=== PATIENT | male | born 1960 | race African-American/Black ===

== ENCOUNTER 2016-11-18 00:21 | Observation (INO) | payer OTHER ==
[~2016-11-18] VITALS: Ht 175.3 cm; Wt 68.0 kg
[2016-11-18] MEDS ORDERED: MORPHINE SULFATE 2 MG/ML DISP.SYRIN. IV PRN (01:45)
[2016-11-18] MEDS ORDERED: ONDANSETRON PF 4 MG/2 ML VIAL. IV PRN (01:45)
[2016-11-18 01:50] LABS: GFR 92.9; POTASSIUM 3.8 mmol/L (3.5-5.1)
[2016-11-18 01:55] LABS: ALBUMIN 2.8 g/dL (3.4-5.0); DIRECT BILIRUBIN 0.1 mg/dL (0.0-0.2); TOTAL BILIRUBIN 0.3 mg/dL (0.2-1.0); TOTAL PROTEIN 7.3 g/dL (6.4-8.2)
[2016-11-18 02:04] LABS: BASO % 1 % (0-3); EOS % 4 % (0-3); HEMATOCRIT 39.6 % (39.0-53.0); LYMPH # 3.1 x10^3/uL (1.0-4.8); LYMPH % 50 % (24-48); MEAN CORPUSCULAR HEMOGLOBIN 35 pg (25-35); MEAN CORPUSCULAR HGB CONC 33 g/dL (31-37); MEAN CORPUSCULAR VOLUME 106 fL (79-100); MONO % 7 % (0-9); NEUT % 39 % (31-73); PLATELET COUNT 242 x10^3/uL (140-400); RED BLOOD COUNT 3.74 x10^6/uL (4.30-5.70); RED CELL DISTRIBUTION WIDTH 12.9 % (11.5-14.5); WHITE BLOOD COUNT 6.1 x10^3/uL (4.0-11.0)
--- NOTE | 2016-11-18 02:06 | PHYS DOC ---
Past Medical History Past Medical History: No Pertinent History Past Surgical History: No Surgical History Alcohol Use: Heavy Additional Information: 6 PACK DAY Drug Use: Cocaine, Heroin, Marijuana Adult General Chief Complaint Chief Complaint: Palpitations HPI HPI 56-year-old male presenting to the emergency department today with shortness of breath palpitations chest pain. EMS arrived to the patient and the patient was hypotensive with evidence of end organ dysfunction. Patient was given 6 mg of adenosine after IV established. EMS reports conversion to normal sinus rhythm. Currently the patient is asymptomatic. Onset 1 hour prior to arrival. Duration intermittent. Alleviated by adenosine. No exacerbating factors. Review of systems is negative for chest pain shortness of breath abdominal pain nausea vomiting fevers or chills. All other review of systems is negative unless otherwise noted in history of present illness. Review of Systems Review of Systems SEE ABOVE. Current Medications Current Medications Current Medications Medications (Trade) Dose Ordered Sig/Ebony Start Time Stop Time Status Last Admin Dose Admin Aspirin (Children'S Aspirin) 324 mg 1X ONCE 11/18/16 02:15 11/18/16 02:16 DC Morphine Sulfate 2 mg PRN Q2HR PRN 11/18/16 01:45 11/19/16 01:44 Ondansetron HCl (Zofran) 4 mg PRN Q8HRS PRN 11/18/16 01:45 11/19/16 01:44 Allergies Allergies Allergies Coded Allergies Type Severity Reaction Last Updated Verified No Known Drug Allergies 11/06/13 No Physical Exam Physical Exam Constitutional: Well developed, well nourished, no acute distress, non-toxic appearance. HENT: Normocephalic, atraumatic, bilateral external ears normal, oropharynx moist, no oral exudates, nose normal. [] Eyes: PERRLA, EOMI, conjunctiva normal, no discharge. [] Neck: Normal range of motion, no tenderness, supple, no stridor. Cardiovascular:Heart rate regular rhythm, no murmur Lungs & Thorax: Bilateral breath sounds clear to auscultation [] Abdomen: Bowel sounds normal, soft, no tenderness, no masses, no pulsatile masses. Skin: Warm, dry, no erythema, no rash. [] Back: No tenderness, no CVA tenderness. [] Extremities: No tenderness, no cyanosis, no clubbing, ROM intact, no edema. Neurologic: Alert and oriented X 3, normal motor function, normal sensory function, no focal deficits noted. [] Psychologic: Affect normal, judgement normal, mood normal. [] Current Patient Data Vital Signs Vital Signs Date Time Temp Pulse Resp B/P Pulse Ox O2 Delivery O2 Flow Rate FiO2 11/18/16 00:21 95 21 138/82 97 Room Air Lab Values Laboratory Tests Test 11/18/16 01:15 White Blood Count 6.1x10^3/uL (4.0-11.0) Red Blood Count 3.74x10^6/uL (4.30-5.70) L Hemoglobin 13.0g/dL (13.0-17.5) Hematocrit 39.6% (39.0-53.0) Mean Corpuscular Volume 106fL (79-100) H Mean Corpuscular Hemoglobin 35pg (25-35) Mean Corpuscular Hemoglobin Concent 33g/dL (31-37) Red Cell Distribution Width 12.9% (11.5-14.5) Platelet Count 242x10^3/uL (140-400) Neutrophils (%) (Auto) 39% (31-73) Lymphocytes (%) (Auto) 50% (24-48) H Monocytes (%) (Auto) 7% (0-9) Eosinophils (%) (Auto) 4% (0-3) H Basophils (%) (Auto) 1% (0-3) Neutrophils # (Auto) 2.4x10^3uL (1.8-7.7) Lymphocytes # (Auto) 3.1x10^3/uL (1.0-4.8) Monocytes # (Auto) 0.4x10^3/uL (0.0-1.1) Eosinophils # (Auto) 0.2x10^3/uL (0.0-0.7) Basophils # (Auto) 0.0x10^3/uL (0.0-0.2) Sodium Level 145mmol/L (136-145) Potassium Level 3.8mmol/L (3.5-5.1) Chloride Level 110mmol/L (98-107) H Carbon Dioxide Level 27mmol/L (21-32) Anion Gap 8 (6-14) Blood Urea Nitrogen 11mg/dL (8-26) Creatinine 1.0mg/dL (0.7-1.3) Estimated GFR (Cockcroft-Gault) 92.9 Glucose Level 103mg/dL (70-99) H Calcium Level 9.0mg/dL (8.5-10.1) Total Bilirubin 0.3mg/dL (0.2-1.0) Direct Bilirubin 0.1mg/dL (0.0-0.2) Aspartate Amino Transferase (AST) 21U/L (15-37) Alanine Aminotransferase (ALT) 23U/L (16-63) Alkaline Phosphatase 62U/L (46-116) Troponin I Quantitative < 0.017ng/mL (0.000-0.055) FS-Kvw-Q-Type Natriuretic Peptide 95pg/mL (0-124) Total Protein 7.3g/dL (6.4-8.2) Albumin 2.8g/dL (3.4-5.0) L Lipase 189U/L (73-393) Laboratory Tests 11/18/16 01:15 Laboratory Tests 11/18/16 01:15 EKG EKG EKG shows sinus rhythm with a regular rate. [place] normal. Intervals normal. ST segments congruent. Mild T waves increased amplitude in lead V3 and V4. [] Radiology/Procedures Radiology/Procedures [] Chest x-ray shows no obvious infiltrate or pneumothorax. Course & Med Decision Making Course & Med Decision Making Pertinent Labs and Imaging studies reviewed. (See chart for details) [] 48-year-old male presenting to the emergency department today after being reportedly in SVT and converting with adenosine during prehospital care. Upon arrival to our emergency department the patient is asymptomatic. Vital signs are within normal limits. IV established. Blood work taken. EKG shows mild increased T-wave amplitude otherwise unremarkable. Patient denies chest pain or shortness of breath. Aspirin given. Patient then admitted for further evaluation workup and care. Cardiology consultation placed. Departure Departure Impression: Primary Impression: SVT (supraventricular tachycardia) Disposition: ADMITTED INPATIENT Admitting Physician: Mary Ellen Barnes Condition: STABLE Referrals: NO PCP (PCP) DARREN CASPER MD Nov 18, 2016 02:06
[2016-11-18] MEDS ORDERED: ASPIRIN 81 MG TAB.CHEW PO ONE (02:15)
--- NOTE | 2016-11-18 06:29 | ACF ---
JARETFADIA ZunigaHAMZAH 11/18/16 0629: Admit Criteria Forms Admit Criteria Forms Admit Criteria Forms SUPRAVENTRICULAR ARRHYTHMIAS Clinical Indications for Admission to Inpatient Care (Place 'X' for any and all applicable criteria): Admission is indicated by ANY ONE of the following (1)(2): [ ]I. Arrhythmia causing significant symptoms or findings as indicated by ANY ONE of the following: [ ]a) Chest pain [ ]b) Myocardial ischemia [ ]c) Altered mental status [ ]d) Dizziness, weakness, or light-headedness [ ]e) Dyspnea or hypoxemia [ ]f) Heart failure (eg, pulmonary edema)(11) [ ]II. Initiation of antiarrhythmic drug therapy is needed in patient at high risk of adverse events as indicated by ANY ONE of the following: [ ]a) Significant structural heart disease (eg, aortic stenosis, reduced ejection fraction, cardiomyopathy, congenital heart disease) [ ]b) Underlying sinus node or atrioventricular conduction disturbances [ ]c) Prolonged QT interval [ ]d) Need for treatment with antiarrhythmic that have significant proarrhythmic potential ( procainamide) [ ]e) Patient whose sinus rhythm has not been observed on ECG [X]III. Inpatient admission required rather than observation care because of ANY ONE of the following: [ ]a) Syncope [ ]b) Patient has automatic implanted cardioverter-defibrillator that is repeatedly firing, malfunctioning, or in need of immediate adjustment of settings beyond scope of ambulatory or observation care. [X]c) Hemodynamic instability that is severe or persistent [ ]d) Unstable cardiac conduction defects indicated by ANY ONE of the following(19)(20)(21): [ ]a) Type II second-degree atrioventricular block [ ]b) Third-degree atrioventricular block [ ]C) New-onset left bundle branch block with suspected myocardial ischemia [ ]e) Severe electrolyte abnormalities requiring inpatient care [ ]f) Continuous intravenous infusion of anticoagulation, platelet inhibitor, vasoactive, or antiarrhythmic medication(14) [ ]g) Pulmonary artery catheter monitoring [ ]h) Repeat cardioversion necessary [ ]i) Other condition, treatment or monitoring requiring inpatient admission [ ]IV. Underlying medical condition that necessitates inpatient care (eg, thyrotoxicosis, severe acidosis) Extended stay beyond goal length of stay may be needed for(1)(17)(18): [ ]a) Persistent hemodynamic instability or continued severe arrhythmia [ ]b) Continued monitoring during initiation of certain medications (eg, some antiarrhythmics)(17)(19) [ ]c) Precipitating cause requires ongoing inpatient care (eg, severe electrolyte abnormality, systemic infection, acidosis) [ ]d) Unstable comorbidities The original [facility] content created by [facility] has been revised. The portions of the content which have been revised are identified through the use of italic text or in bold, and [facility] has neither reviewed nor approved the modified material. All other unmodified content is copyright [facility]. Please see references footnoted in the original [facility] edition 2016 DARREN CASPER MD 11/21/16 2330: HAMZAH ADKINS Nov 18, 2016 06:29 DARREN CASPER MD Nov 21, 2016 23:30
--- NOTE | 2016-11-18 06:38 | EKG ---
[facility] [address] [place] [address] Test Date: 2016-11-18 Test Time: 00:30:23 Pat Name: ANDREINA PRADO Department: Room: ED HOLD 5 Gender: M Opthalmic Tech: ER : 1960 Requested By: DARREN CASPER Order Number: [id number] Reading MD: Gabbi Reed Measurements Intervals [place] Rate: 89 P: 102 NC: 140 QRS: 74 QRSD: 66 T: 60 QT: 326 QTc: 402 Interpretive Statements SINUS RHYTHM LEFT ATRIAL ABNORMALITY ABNORMAL ECG RI6.01 Compared to ECG 01/09/2014 17:35:52 Atrial abnormality now present Atrial premature complex(es) no longer present Electronically Signed On 11-20-2016 18:28:12 QA TESTER by Gabbi Reed
--- NOTE | 2016-11-18 07:21 | RAD ---
Portable AP upright view CXR: Clinical indications: Chest pain tonight. Comparison: January 09, 2014. Findings: Old granulomatous disease is seen on the right side. No acute lung infiltrate or pleural effusion or pulmonary edema or lung mass or pneumothorax is seen. The heart size, pulmonary vasculature, mediastinum and both dena are unremarkable. Impression: No acute radiographic abnormality is seen.
--- NOTE | 2016-11-18 10:17 | PDOC2 ---
DEMOND ACEVEDO NIKE ATHLETE 11/18/16 1017: CARDIAC CONSULT DATE OF CONSULT Date of Consult DATE: 11/18/16 TIME: 09:49 REASON FOR CONSULT Reason for Consult: SVT, S/P converting REFERRING PHYSICIAN Referring Physician: Robby SOURCE Source: Chart review, Patient HISTORY OF PRESENT ILLNESS HISTORY OF PRESENT ILLNESS This is a pleasant 56 yo male admitted for complains of palpitations. 2229 last night he felt his heart like it was racing. He was having some chest tightness and SOA. No nausea, vomiting diaphoresis. Via ambulance he was noted with SVT and was given adenosine which he then converted back to SR. No strips available from the EMS. Denies this of any past occurrence. He does not take any routine medications but positive for past use of cocaine marijuana and actually was at [facility] recently for 4 days of detox then transferred to [facility] since Nov 09. Denies any CAD, arrhythmia, VTE, falls or any recent injury. PAST MEDICAL HISTORY Past Medical History No past medical history PAST SURGICAL HISTORY Past Surgical History: No pertinent history FAMILY HISTORY Family History: Coronary Artery Disease (mother) SOCIAL HISTORY Smoke: 1 pack per day (>30 yrs) ALCOHOL: occassional Drugs: Cocaine, Marijuana, Heroin Lives: Alone ([facility] currently) CURRENT MEDICATIONS CURRENT MEDICATIONS Current Medications Medications (Trade) Dose Ordered Sig/Ebony Route PRN Reason Start Time Stop Time Status Last Admin Dose Admin Aspirin (Children'S Aspirin) 324 mg 1X ONCE PO 11/18/16 02:15 11/18/16 02:16 DC 11/18/16 02:15 ALLERGIES ALLERGIES: Coded Allergies: No Known Drug Allergies (Unverified , 11/06/13) ROS Review of System 14 point ROS evaluated with pertinent positives noted per HPI PHYSICAL EXAM General: Alert, Oriented X3, Cooperative, No acute distress HEENT: Atraumatic, Mucous membr. moist/pink Lungs: Clear to auscultation, Normal air movement Heart: Regular rate, Normal S1, Normal S2, No murmurs Abdomen: Soft, No tenderness, Other (pulsatile mass to mid abdomen) Extremities: No cyanosis, No edema, Other (faint pedal pulses) Skin: No breakdown, Other (strophic and hairless skin tolegs) Neuro: Normal speech, Sensation intact Psych/Mental Status: Mental status NL, Mood NL MUSCULOSKELETAL: Osteoarthritic changes both hands VITALS VITALS Vital Signs Date Time Temp Pulse Resp B/P Pulse Ox O2 Delivery O2 Flow Rate FiO2 11/18/16 08:44 76 20 115/68 100 Room Air LABS Lab: Laboratory Tests Test 11/18/16 01:15 White Blood Count 6.1x10^3/uL (4.0-11.0) Red Blood Count 3.74x10^6/uL (4.30-5.70) Hemoglobin 13.0g/dL (13.0-17.5) Hematocrit 39.6% (39.0-53.0) Mean Corpuscular Volume 106fL (79-100) Mean Corpuscular Hemoglobin 35pg (25-35) Mean Corpuscular Hemoglobin Concent 33g/dL (31-37) Red Cell Distribution Width 12.9% (11.5-14.5) Platelet Count 242x10^3/uL (140-400) Neutrophils (%) (Auto) 39% (31-73) Lymphocytes (%) (Auto) 50% (24-48) Monocytes (%) (Auto) 7% (0-9) Eosinophils (%) (Auto) 4% (0-3) Basophils (%) (Auto) 1% (0-3) Neutrophils # (Auto) 2.4x10^3uL (1.8-7.7) Lymphocytes # (Auto) 3.1x10^3/uL (1.0-4.8) Monocytes # (Auto) 0.4x10^3/uL (0.0-1.1) Eosinophils # (Auto) 0.2x10^3/uL (0.0-0.7) Basophils # (Auto) 0.0x10^3/uL (0.0-0.2) Sodium Level 145mmol/L (136-145) Potassium Level 3.8mmol/L (3.5-5.1) Chloride Level 110mmol/L (98-107) Carbon Dioxide Level 27mmol/L (21-32) Anion Gap 8 (6-14) Blood Urea Nitrogen 11mg/dL (8-26) Creatinine 1.0mg/dL (0.7-1.3) Estimated GFR (Cockcroft-Gault) 92.9 Glucose Level 103mg/dL (70-99) Calcium Level 9.0mg/dL (8.5-10.1) Total Bilirubin 0.3mg/dL (0.2-1.0) Direct Bilirubin 0.1mg/dL (0.0-0.2) Aspartate Amino Transf (AST/SGOT) 21U/L (15-37) Alanine Aminotransferase (ALT/SGPT) 23U/L (16-63) Alkaline Phosphatase 62U/L (46-116) Troponin I Quantitative < 0.017ng/mL (0.000-0.055) CO-Tjp-Q-Type Natriuretic Peptide 95pg/mL (0-124) Total Protein 7.3g/dL (6.4-8.2) Albumin 2.8g/dL (3.4-5.0) Lipase 189U/L (73-393) ASSESSMENT/PLAN ASSESSMENT/PLAN 1. 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 Converted to SR after x1 adenosine 2. Pulsatile mass to abdomen 3. Substance abuse: recent heroin detox, cocaine, marijuana' 4. Tobaccoism Recommendations 1. EKG SR, no acute changes. TSH, lipid panel, TTE 2. Educate regarding vagal maneuvers 3. No BB with known use of cocaine 4. Smoking cessation 5. Abdominal sono. 6. Start on ECASA for primary prevention' 7. Discussed abstinence to recreational drugs. Problems: CHRIS LOUIS MD 11/18/16 1826: CARDIAC CONSULT ALLERGIES ALLERGIES: Coded Allergies: No Known Drug Allergies (Unverified , 11/06/13) ASSESSMENT/PLAN ASSESSMENT/PLAN Patient seen and examined. Agree with RETORT FURNACE OPERATOR's assessment and plan. Patient with newly diagnosed PSVT, back in sinus rhythm with IV adenosine bolus. 2D echo showed normal LV function. Cannot give BB due to his history of cocaine use and BP borderline low for CCB. We will consider antiarrhythmics/ablation if he has recurrence of SVT. Thank you for your consultation. Problems: DEMOND ACEVEDO APRN Nov 18, 2016 10:17 CHRIS LOUIS MD Nov 18, 2016 18:26
[2016-11-18 11:25] LABS: MAGNESIUM 2.1 mg/dL (1.8-2.4)
[2016-11-18 11:26] LABS: CHOLESTEROL/HDL RATIO 1.4
[2016-11-18 13:02] VITALS: BP 119/81
--- NOTE | 2016-11-18 13:02 | RAD ---
Sonogram of the abdominal aorta Clinical indications: Pulsatile mass. Possible aneurysm. Findings: AP and transverse dimensions of the proximal abdominal aorta are 2.9 cm and 2.0 cm respectively. The AP and transverse dimensions of the mid abdominal aorta are 1.7 cm and 1.7 cm respectively. The AP and transverse dimensions of the distal abdominal aorta are 1.8 cm and 2.0 cm respectively. The peak systolic flow velocity measurement is 87 cm/s. The caliber of the right common iliac artery is 10 mm and the caliber of the left common iliac artery is 10 mm. IMPRESSION: No focal aneurysmal dilatation of the abdominal aorta is seen.
--- NOTE | 2016-11-18 13:25 | CARD ---
APPROVED REPORT EXAM: Two-dimensional and M-mode echocardiogram with Doppler and color Doppler. Other Information Quality : GoodHR: 61bpm Rhythm : NSR INDICATION Dyspnea RISK FACTORS Hypertension 2D DIMENSIONS RVDd2.5 (2.9-3.5cm)Left Atrium(2D)2.1 (1.6-4.0cm) IVSd1.1 (0.7-1.1cm)Aortic Root(2D)2.9 (2.0-3.7cm) LVDd4.0 (3.9-5.9cm)LVOT Diameter2.2 (1.8-2.4cm) PWd1.1 (0.7-1.1cm)LVDs2.6 (2.5-4.0cm) FS (%) 35.8 %SV46.0 ml LVEF(%)65.9 (>50%) Aortic Valve AoV Peak Chris.94.0cm/sAoV VTI18.4cm AO Peak GR.3.5mmHgLVOT Peak Chris.78.6cm/s AO Mean GR.2mmHgAVA (VMAX)3.18cm2 Mitral Valve MV E Mhvlmmwl91.0cm/sMV E Peak Gr.1mmHg MV DECEL [id number] A Suzyvwmy69.6cm/s MV E Mean Gr.0mmHgE/A Ratio0.8 Pulmonary Valve PV Peak Ptpopgus77.7cm/s Tricuspid Valve TR P. Dglfzlvl217iw/sTR Peak Gr.17mmHg Pulmonary Vein S1 Bslfchpf66.7cm/sD2 Gyvyppsy15.8cm/s PVa [id number] LEFT VENTRICLE The left ventricle is normal size. There is mild concentric left ventricular hypertrophy. The left ve ntricular systolic function is normal. The ejection fraction is estimated at 60-65%. There is normal LV segmental wall motion. Transmitral Doppler flow pattern is Grade I-abnormal relaxation pattern. RIGHT VENTRICLE The right ventricle is normal size. There is normal right ventricular wall thickness. The right ventr icular systolic function is normal. ATRIA The left atrium size is normal. The right atrium size is normal. The interatrial septum is intact wit h no evidence for an atrial septal defect or patent foramen ovale as noted on 2-D or Doppler imaging. AORTIC VALVE The aortic valve is normal in structure and function. Doppler and Color Flow revealed no significant aortic regurgitation. There is no significant aortic valvular stenosis. MITRAL VALVE The mitral valve is normal in structure and function. There is no evidence of mitral valve prolapse. There is no mitral valve stenosis. Doppler and Color Flow revealed trace mitral regurgitation. TRICUSPID VALVE Doppler and Color Flow revealed trace tricuspid regurgitation. The pulmonary artery systolic pressure is estimated at 23 mmHg. There is no pulmonary hypertension. PULMONIC VALVE The pulmonary valve is normal in structure and function. Doppler and Color Flow revealed no pulmonic valvular regurgitation. There is no pulmonic valvular stenosis. GREAT VESSELS The aortic root is normal in size. The ascending aorta is normal in size. The pulmonary artery is nor mal. The IVC is normal in size and collapses >50% with inspiration. PERICARDIAL EFFUSION There is no evidence of significant pericardial effusion. Critical Notification Critical Value: No <Conclusion> The left ventricular systolic function is normal. The ejection fraction is estimated at 60-65%. There is normal LV segmental wall motion. Transmitral Doppler flow pattern is Grade I-abnormal relaxation pattern. Trace mitral regurgitation. Trace tricuspid regurgitation. The pulmonary artery systolic pressure is estimated at 23 mmHg. There is no pulmonary hypertension. There is no evidence of significant pericardial effusion.
[2016-11-18 14:08] VITALS: BP 119/81
[2016-11-18 14:45] VITALS: BP 111/74
[2016-11-18 19:00] VITALS: BP 133/76
[2016-11-18 23:00] VITALS: BP 104/72
[2016-11-18 23:03] LABS: BARBITURATES NEG (NEG); BENZODIAZEPINES POS (NEG); CANNABINOIDS NEG (NEG); COCAINE NEG (NEG); ETHANOL, URINE NEG (NEG); METHADONE NEG (NEG); OPIATES NEG (NEG); PHENCYCLIDINE NEG (NEG)
[2016-11-19 03:00] VITALS: BP 113/77
--- NOTE | 2016-11-19 03:33 | HP ---
ADMIT DATE: 11/18/2016 CHIEF COMPLAINT: Palpitations, shortness of breath, chest pain. HISTORY OF PRESENT ILLNESS: The patient is a pleasant middle-aged male who is currently incarcerated at the [facility] group home, basically presented with chest pain and palpitations, shortness of breath, was noted to be in SVT. He came in via ambulance. He is now converted back to sinus rhythm. We admitted the patient. We will check serial enzymes, serial EKGs. We will consult the cardiology. PAST MEDICAL HISTORY: Drug abuse. ALLERGIES: None. FAMILY HISTORY: Hypertension. SOCIAL HISTORY: He takes drugs. He drinks socially. No smoking. MEDICATIONS: Reviewed, please refer to the MRAD. REVIEW OF SYSTEMS: GENERAL: No history of weight change, weakness or fevers. SKIN: No bruising, hair changes or rashes. EYES: No blurred, double or loss of vision. NOSE AND THROAT: No history of nosebleeds, hoarseness or sore throat. HEART: No history of palpitations, chest pain or shortness of breath on exertion. LUNGS: Denies cough, hemoptysis, wheezing or shortness of breath. GASTROINTESTINAL: Denies changes in appetite, nausea, vomiting, diarrhea or constipation. GENITOURINARY: No history of frequency, urgency, hesitancy or nocturia. NEUROLOGIC: Denies history of numbness, tingling, tremor or weakness. PSYCHIATRIC: No history of panic, anxiety or depression. ENDOCRINE: No history of heat or cold intolerance, polyuria or polydipsia. EXTREMITIES: Denies muscle weakness, joint pain, pain on walking or stiffness. PHYSICAL EXAMINATION: VITAL SIGNS: Temperature afebrile, pulse 74, respirations 18, blood pressure 120/77, O2 sat 99% on room air. GENERAL: He is alert, cooperative. HEART: Normal S1, S2. LUNGS: Clear. ABDOMEN: Soft. EXTREMITIES: No edema. SKIN: No rashes. PSYCHIATRIC: He is little depressed. VASCULAR: Good capillary refill. ENDOCRINE: No thyromegaly. LYMPHATICS: No cervical nodes. HEMATOPOIETIC: No bruising. LABORATORY DATA: Hematology normal. Electrolytes normal. Troponin is 0. ASSESSMENT AND PLAN: Resolving supraventricular tachycardia. The patient has been admitted. We will do cardiac monitoring, serial enzymes, serial EKGs. Consult Cardiology. Continue his home meds. MARIKA GONZALES DO DR: Ab JOB#: [id number] / [id number]
[2016-11-19] MEDS ORDERED: ASPIRIN ENTERIC COATED 81 MG TABLET.DR. PO SCH (08:00)
[2016-11-19 08:20] LABS: BASO % 1 % (0-3); EOS % 4 % (0-3); HEMATOCRIT 35.7 % (39.0-53.0); HEMOGLOBIN 11.5 g/dL (13.0-17.5); LYMPH # 3.2 x10^3/uL (1.0-4.8); LYMPH % 64 % (24-48); MEAN CORPUSCULAR HEMOGLOBIN 34 pg (25-35); MEAN CORPUSCULAR HGB CONC 32 g/dL (31-37); MEAN CORPUSCULAR VOLUME 105 fL (79-100); MONO % 7 % (0-9); NEUT % 25 % (31-73); PLATELET COUNT 254 x10^3/uL (140-400); WHITE BLOOD COUNT 5.1 x10^3/uL (4.0-11.0)
[2016-11-19 08:25] VITALS: BP 119/76
[2016-11-19 08:34] LABS: CALCIUM 8.8 mg/dL (8.5-10.1); GFR 92.9; POTASSIUM 3.9 mmol/L (3.5-5.1)
[2016-11-19 10:09] LABS: % EOS 3 % (0-5); PLT ESTIMATE ADEQUATE (ADEQUATE)
--- NOTE | 2016-11-19 10:52 | PDOC ---
PROGRESS NOTES Chief Complaint Chief Complaint 1. SVT 2. Chest pain 3. Shortness of breath 4. Palpitations 5. Drug abuse History of Present Illness History of Present Illness Pt awake, alert, and oriented with seen this AM. police patrol officer present and at bedside. Pt denies any current SOB, chest pain, or palpitations. All questions and concerns addressed and answered. Vitals Vitals Vital Signs Date Time Temp Pulse Resp B/P Pulse Ox O2 Delivery O2 Flow Rate FiO2 11/19/16 08:25 97.9 72 20 119/76 97 Room Air 97.9 Physical Exam General: Alert, Oriented X3, Cooperative, No acute distress Heart: Regular rate, Normal S1, Normal S2, No murmurs Lungs: Clear Abdomen: Soft, No tenderness, Other (pulsatile mass to mid abdomen) Extremities: No cyanosis, No edema, Other (faint pedal pulses) Skin: No breakdown, Other (strophic and hairless skin tolegs) Labs LABS Laboratory Tests Test 11/18/16 14:20 11/18/16 22:20 11/19/16 07:45 Nasal Screen MRSA (PCR) Negative (Negative) Urine Opiates Screen Neg (NEG) Urine Methadone Screen Neg (NEG) Urine Barbiturates Neg (NEG) Urine Phencyclidine Screen Neg (NEG) Urine Amphetamine/Methamphetamine Neg (NEG) Urine Benzodiazepines Screen Pos (NEG) Urine Cocaine Screen Neg (NEG) Urine Cannabinoids Screen Neg (NEG) Urine Ethyl Alcohol Neg (NEG) White Blood Count 5.1x10^3/uL (4.0-11.0) Red Blood Count 3.40x10^6/uL (4.30-5.70) Hemoglobin 11.5g/dL (13.0-17.5) Hematocrit 35.7% (39.0-53.0) Mean Corpuscular Volume 105fL (79-100) Mean Corpuscular Hemoglobin 34pg (25-35) Mean Corpuscular Hemoglobin Concent 32g/dL (31-37) Red Cell Distribution Width 13.0% (11.5-14.5) Platelet Count 254x10^3/uL (140-400) Neutrophils (%) (Auto) 25% (31-73) Lymphocytes (%) (Auto) 64% (24-48) Monocytes (%) (Auto) 7% (0-9) Eosinophils (%) (Auto) 4% (0-3) Basophils (%) (Auto) 1% (0-3) Neutrophils # (Auto) 1.3x10^3uL (1.8-7.7) Lymphocytes # (Auto) 3.2x10^3/uL (1.0-4.8) Monocytes # (Auto) 0.3x10^3/uL (0.0-1.1) Eosinophils # (Auto) 0.2x10^3/uL (0.0-0.7) Basophils # (Auto) 0.0x10^3/uL (0.0-0.2) Segmented Neutrophils % 26% (35-66) Lymphocytes % 66% (24-48) Atypical Lymphocytes % (Manual) 1% (0-0) Monocytes % 4% (0-10) Eosinophils % 3% (0-5) Platelet Estimate Adequate (ADEQUATE) Sodium Level 143mmol/L (136-145) Potassium Level 3.9mmol/L (3.5-5.1) Chloride Level 109mmol/L (98-107) Carbon Dioxide Level 28mmol/L (21-32) Anion Gap 6 (6-14) Blood Urea Nitrogen 13mg/dL (8-26) Creatinine 1.0mg/dL (0.7-1.3) Estimated GFR (Cockcroft-Gault) 92.9 Glucose Level 86mg/dL (70-99) Calcium Level 8.8mg/dL (8.5-10.1) Review of Systems Review of Systems Patient complaint of hunger Patient complaint of fatigue Assessment and Plan Assessmemt and Plan Problems Medical Problems: (1) SVT (supraventricular tachycardia) Status: Acute Assessment: 1. SVT 2. Chest pain 3. Shortness of breath 4. Palpitations 5. Drug abuse Plan: Continue to monitor the patient per floor protocol Daily labs Daily PTOT Appreciate Cards input and evaluation ETIENNE JUAREZ DC when ok with Cardiology Problems: Comment Review of Relevant I have reviewed the following items lucrecia (where applicable) has been applied. Labs Laboratory Tests Test 11/18/16 01:15 11/18/16 14:20 11/18/16 22:20 11/19/16 07:45 White Blood Count 6.1x10^3/uL (4.0-11.0) 5.1x10^3/uL (4.0-11.0) Red Blood Count 3.74x10^6/uL (4.30-5.70) 3.40x10^6/uL (4.30-5.70) Hemoglobin 13.0g/dL (13.0-17.5) 11.5g/dL (13.0-17.5) Hematocrit 39.6% (39.0-53.0) 35.7% (39.0-53.0) Mean Corpuscular Volume 106fL (79-100) 105fL (79-100) Mean Corpuscular Hemoglobin 35pg (25-35) 34pg (25-35) Mean Corpuscular Hemoglobin Concent 33g/dL (31-37) 32g/dL (31-37) Red Cell Distribution Width 12.9% (11.5-14.5) 13.0% (11.5-14.5) Platelet Count 242x10^3/uL (140-400) 254x10^3/uL (140-400) Neutrophils (%) (Auto) 39% (31-73) 25% (31-73) Lymphocytes (%) (Auto) 50% (24-48) 64% (24-48) Monocytes (%) (Auto) 7% (0-9) 7% (0-9) Eosinophils (%) (Auto) 4% (0-3) 4% (0-3) Basophils (%) (Auto) 1% (0-3) 1% (0-3) Neutrophils # (Auto) 2.4x10^3uL (1.8-7.7) 1.3x10^3uL (1.8-7.7) Lymphocytes # (Auto) 3.1x10^3/uL (1.0-4.8) 3.2x10^3/uL (1.0-4.8) Monocytes # (Auto) 0.4x10^3/uL (0.0-1.1) 0.3x10^3/uL (0.0-1.1) Eosinophils # (Auto) 0.2x10^3/uL (0.0-0.7) 0.2x10^3/uL (0.0-0.7) Basophils # (Auto) 0.0x10^3/uL (0.0-0.2) 0.0x10^3/uL (0.0-0.2) Sodium Level 145mmol/L (136-145) 143mmol/L (136-145) Potassium Level 3.8mmol/L (3.5-5.1) 3.9mmol/L (3.5-5.1) Chloride Level 110mmol/L (98-107) 109mmol/L (98-107) Carbon Dioxide Level 27mmol/L (21-32) 28mmol/L (21-32) Anion Gap 8 (6-14) 6 (6-14) Blood Urea Nitrogen 11mg/dL (8-26) 13mg/dL (8-26) Creatinine 1.0mg/dL (0.7-1.3) 1.0mg/dL (0.7-1.3) Estimated GFR (Cockcroft-Gault) 92.9 92.9 Glucose Level 103mg/dL (70-99) 86mg/dL (70-99) Calcium Level 9.0mg/dL (8.5-10.1) 8.8mg/dL (8.5-10.1) Magnesium Level 2.1mg/dL (1.8-2.4) Total Bilirubin 0.3mg/dL (0.2-1.0) Direct Bilirubin 0.1mg/dL (0.0-0.2) Aspartate Amino Transf (AST/SGOT) 21U/L (15-37) Alanine Aminotransferase (ALT/SGPT) 23U/L (16-63) Alkaline Phosphatase 62U/L (46-116) Troponin I Quantitative < 0.017ng/mL (0.000-0.055) RP-Eod-T-Type Natriuretic Peptide 95pg/mL (0-124) Total Protein 7.3g/dL (6.4-8.2) Albumin 2.8g/dL (3.4-5.0) Triglycerides Level 110mg/dL (0-150) Cholesterol Level 151mg/dL (0-200) LDL Cholesterol, Calculated 24mg/dL (0-100) VLDL Cholesterol, Calculated 22mg/dL (0-40) HDL Cholesterol 105mg/dL (40-60) Cholesterol/HDL Ratio 1.4 Lipase 189U/L (73-393) Thyroid Stimulating Hormone (TSH) 2.733uIU/mL (0.358-3.74) Nasal Screen MRSA (PCR) Negative (Negative) Urine Opiates Screen Neg (NEG) Urine Methadone Screen Neg (NEG) Urine Barbiturates Neg (NEG) Urine Phencyclidine Screen Neg (NEG) Urine Amphetamine/Methamphetamine Neg (NEG) Urine Benzodiazepines Screen Pos (NEG) Urine Cocaine Screen Neg (NEG) Urine Cannabinoids Screen Neg (NEG) Urine Ethyl Alcohol Neg (NEG) Segmented Neutrophils % 26% (35-66) Lymphocytes % 66% (24-48) Atypical Lymphocytes % (Manual) 1% (0-0) Monocytes % 4% (0-10) Eosinophils % 3% (0-5) Platelet Estimate Adequate (ADEQUATE) Laboratory Tests Test 11/18/16 14:20 11/18/16 22:20 11/19/16 07:45 Nasal Screen MRSA (PCR) Negative (Negative) Urine Opiates Screen Neg (NEG) Urine Methadone Screen Neg (NEG) Urine Barbiturates Neg (NEG) Urine Phencyclidine Screen Neg (NEG) Urine Amphetamine/Methamphetamine Neg (NEG) Urine Benzodiazepines Screen Pos (NEG) Urine Cocaine Screen Neg (NEG) Urine Cannabinoids Screen Neg (NEG) Urine Ethyl Alcohol Neg (NEG) White Blood Count 5.1x10^3/uL (4.0-11.0) Red Blood Count 3.40x10^6/uL (4.30-5.70) Hemoglobin 11.5g/dL (13.0-17.5) Hematocrit 35.7% (39.0-53.0) Mean Corpuscular Volume 105fL (79-100) Mean Corpuscular Hemoglobin 34pg (25-35) Mean Corpuscular Hemoglobin Concent 32g/dL (31-37) Red Cell Distribution Width 13.0% (11.5-14.5) Platelet Count 254x10^3/uL (140-400) Neutrophils (%) (Auto) 25% (31-73) Lymphocytes (%) (Auto) 64% (24-48) Monocytes (%) (Auto) 7% (0-9) Eosinophils (%) (Auto) 4% (0-3) Basophils (%) (Auto) 1% (0-3) Neutrophils # (Auto) 1.3x10^3uL (1.8-7.7) Lymphocytes # (Auto) 3.2x10^3/uL (1.0-4.8) Monocytes # (Auto) 0.3x10^3/uL (0.0-1.1) Eosinophils # (Auto) 0.2x10^3/uL (0.0-0.7) Basophils # (Auto) 0.0x10^3/uL (0.0-0.2) Segmented Neutrophils % 26% (35-66) Lymphocytes % 66% (24-48) Atypical Lymphocytes % (Manual) 1% (0-0) Monocytes % 4% (0-10) Eosinophils % 3% (0-5) Platelet Estimate Adequate (ADEQUATE) Sodium Level 143mmol/L (136-145) Potassium Level 3.9mmol/L (3.5-5.1) Chloride Level 109mmol/L (98-107) Carbon Dioxide Level 28mmol/L (21-32) Anion Gap 6 (6-14) Blood Urea Nitrogen 13mg/dL (8-26) Creatinine 1.0mg/dL (0.7-1.3) Estimated GFR (Cockcroft-Gault) 92.9 Glucose Level 86mg/dL (70-99) Calcium Level 8.8mg/dL (8.5-10.1) Medications Current Medications Ondansetron HCl (Zofran) 4 mg PRN Q8HRS PRN IV NAUSEA/VOMITING; Start 11/18/16 at 01:45; Stop 11/19/16 at 01:44; Status DC Morphine Sulfate 2 mg PRN Q2HR PRN IV PAIN; Start 11/18/16 at 01:45; Stop 11/19 at 01:44; Status DC Aspirin (Children'S Aspirin) 324 mg 1X ONCE PO Last administered on 11/18/16 02:15; Start 11/18/16 at 02:15; Stop 11/18/16 at 02:16; Status DC Aspirin (Ecotrin) 81 mg [id number] PO Last administered on 11/19/16 09:14; Start 11/19/16 at 08:00 Active Scripts Active Vitals/I & O Vital Sign - Last 24 Hours 11/18/16 11/18/16 11/18/16 11/18/16 12:22 13:02 14:08 14:33 Temp 97.6 97.6 97.6 97.6 Pulse 66 61 61 Resp 18 B/P 109/69 119/81 119/81 Pulse Ox 100 100 100 O2 Delivery Room Air Room Air Room Air 11/18/16 11/18/16 11/18/16 11/18/16 14:45 14:49 19:00 20:16 Temp 98.1 98.6 98.1 98.6 Pulse 76 83 Resp 20 B/P 111/74 133/76 Pulse Ox 100 97 O2 Delivery Room Air Room Air Room Air Room Air 11/18/16 11/19/16 11/19/16 23:00 03:00 08:25 Temp 98.9 98.8 97.9 98.9 98.8 97.9 Pulse 78 78 72 Resp 18 18 20 B/P 104/72 113/77 119/76 Pulse Ox 99 98 97 O2 Delivery Room Air Room Air Intake and Output 11/18/16 11/18/16 11/19/16 15:00 23:00 07:00 Intake Total 480 ml 120 ml Output Total 525 ml 515 ml 300 ml Balance -525 ml -35 ml -180 ml MARIKA GONZALES III DO Nov 19, 2016 10:52
[2016-11-19 11:20] VITALS: BP 109/75
== END 2016-11-19 11:00 ==
LOC: EEVIPCON 00:21 → ER 00:21 → ED HOLD 04:48 → 5 SOUTH 12:29
PROVIDERS: ADMIT Internal Medicine; ATTEND Internal Medicine
DX: I47.1 Supraventricular tachycardia (principal); I10 Essential (primary) hypertension; F17.210 Nicotine dependence, cigarettes, uncomplicated; Z82.49 Family history of ischemic heart disease and other diseases of the circulatory system
CPT/HCPCS: 36415; 71010; 80048; 80061; 80076; 83690; 83735; 83880; 84443; 84484; 85007; 85027; 87641; 93005; 93306; 93976; 97161; 99285; G0378; G0481; G0379

== ENCOUNTER → 2018-07-24 | Outpatient (CLI) | payer OTHER ==
--- NOTE | 2018-07-24 11:11 | RAD ---
EXAM: Lumbar spine, 2 views; left shoulder, 3 views. HISTORY: Pain. COMPARISON: None. FINDINGS: Lumbar spine: Frontal and lateral views of the lumbar spine are obtained. There is minimal retrolisthesis of L5 on S1. There is degenerative endplate remodeling at all levels. There is disc space narrowing and facet arthropathy at the lumbosacral junction. Left shoulder: 3 views left shoulder obtained. There is no fracture, dislocation or subluxation. IMPRESSION: 1. No acute osseous finding. 2. Multilevel degenerative change within the lumbar spine, primarily at the lumbosacral junction. Electronically signed by: Miriam Martinez MD (07/24/2018 11:08 AM) [id number]
== END | disposition home or self-care (01) ==
LOC: RAD 10:07
PROVIDERS: ATTEND Internal Medicine Infectious Disease
DX: M47.895 Other spondylosis, thoracolumbar region (principal); M25.512 Pain in left shoulder
CPT/HCPCS: 72100; 73030